=== PATIENT | male | born 1945 | race Caucasian/White ===

== ENCOUNTER 2019-01-27 02:34 | Emergency (ER) | payer MEDICARE, OTHER ==
[~2019-01-27] VITALS: Ht 167.6 cm; Wt 118.3 kg
[~2019-01-27 02:34] MED LIST: ASC500 PO; ASPI-817 PO; BENA20TA4 PO; BUPR150T18 PO; BUSP10TA2 PO; DEXL60CA2 PO; ERGO500013 PO; FENO145T37 PO; FER325 PO; FLUV100C2 PO; GABA300C16 PO; HALO5TAB23 PO; SIMV20TA PO
[2019-01-27 02:45] VITALS: Ht 167.6 cm; Wt 118.3 kg
[2019-01-27 07:12] VITALS: BP 140/89; PULSE 84; RESP 18
== END 2019-01-27 07:14 | disposition home or self-care (01) ==
LOC: E/R 02:34
DX: R07.89 Other chest pain (principal); I10 Essential (primary) hypertension
CPT/HCPCS: 36415; 71045; 80048; 83880; 84484; 85025; 93005